=== PATIENT | female | born 1945 | race Caucasian/White ===

== ENCOUNTER 2018-09-28 23:15 | Inpatient (IN) ==
[2018-09-28] MEDS ORDERED: Aspirin 81 MG TAB.CHEW ONE (23:22)
[2018-09-28] MEDS ORDERED: *HR* Heparin 5,000 UNIT/ML VIAL ONE (23:22)
[2018-09-28] MEDS ORDERED: 0.9 % Sodium Chloride 1,000 ML ONE ×2 (23:22→23:49)
[2018-09-28] MEDS ORDERED: *HR* Ticagrelor 90 MG TABLET ONE (23:22)
[2018-09-28] MEDS ORDERED: *HR* Ticagrelor 90 MG TABLET PO ONE (23:31)
[2018-09-28] MEDS ORDERED: *HR* Heparin 5,000 UNIT/ML VIAL IVP ONE (23:32)
--- NOTE | 2018-09-28 23:34 | Emergency Department Note ---
Disposition Clinical Impression: STEMI (ST elevation myocardial infarction) Qualifiers: Involved coronary artery: unspecified coronary artery Qualified Code(s): I21.3 - ST elevation (STEMI) myocardial infarction of unspecified site Disposition: Admitted As Inpatient Condition: Fair Time of Disposition: 23:41 General Adult HPI - General Stated complaint: STEMI Time Seen by Provider: 09/28/18 23:20 Nursing Notes Reviewed: Yes Vital Signs Reviewed: Yes - History of Present Illness HPI Narrative: 73-year-old female with a history of hypertension, hyperlipidemia, CABG 2 who presents the emergency department with complaints of chest pain. In route patient's EKG was reviewed and shows concern for ST elevation RI. Upon arrival the patient states she has had chest pain for 20 minutes at home, approximately one hour prior to arrival. This pain persists. She was given 2 nitroglycerin as well as 3 aspirin in route. She states her pain is slightly improving but persistent in the center of her chest and into her neck. This feels similar to previous episodes of RI. She has had CABG in 1997, three-vessel and in 2008 with 4 vessel. She has previously had normal ejection fraction. She otherwise denies significant shortness of breath, back pain, nausea, vomiting, dizziness. - Related Data Allergies Allergy/AdvReac Type Severity Reaction Status Date / Time codeine Allergy Confusion Verified 09/28/18 23:26 morphine Allergy Confusion Verified 09/28/18 23:26 Review of Systems: ROS per history of present illness, all other systems reviewed and negative or normal. All systems ED: reviewed and negative except as stated. Review of Systems: As Per HPI Past Medical History - Past Medical History Attestation: Yes The following information was validated with the patient. Source: patient Medical history: Reports: coronary artery disease, hyperlipidemia, hypertension, myocardial infarction Surgical history: Reports: coronary bypass (CABG) (x2), orthopedic, other (knee), other (pelvic sling) - Social History Smoking Status: Never smoker Physical Exam General: Conversant. No apparent distress. Follow commands. Appears stated age. Neck: No JVD. Trachea midline. Neck supple. Eyes: PERRL. No scleral icterus. HENT: Normocephalic and atraumatic. Moist mucus membranes. Cardiovascular: Regular rate and rhythm. Normal S1 and S2. No murmurs apprecia gilmer. Normal capillary refill. Extremities well perfused with 2+ distal pulses bilaterally. No edema. Pulmonary: Normal and equal breath sounds bilaterally, anteriorly and posteriorly. No wheezes, rales, or rhonchi. Not in respiratory distress. Speaks in full sentences. Abdomen: Soft, nondistended, and tontender. No bruits or masses. No guarding. Neuro: Alert and oriented x3. No slurred speech. No focal deficits noted. Skin: No rashes noted on visualized skin. Musculoskeletal: No bony abnormalities visualized. Moves all extremities. Psych: Normal mood. Pleasant. Makes appropriate eye contact. Course - Reevaluation(s) Reevaluation #1: EKG en route shows ST elevations in II, III, aVF, V1-V3 with inversions in I, aVL. Time: 23:07 Reevaluation #2: Repeat EKG shows ST elevations in III, AVF, V1-V3 with inversions in I, AVL. STEMI alert called. Time: 23:23 - Consultations Consultation #1: Spoke with Dr. Kevin. Requested further information on past medical history and medications. He was placed on hold to ask further risk factors. Confirmed the patient has had 2 CABGs, back in 1997 and 2008. She has a history of hypertension, hyperlipidemia. She takes aspirin, metoprolol, and a statin. She has a history of normal EF and was seen by industrial truck driver in April of this year and cleared for knee surgery. Never had a history of valve replacements or in- graft stenting. Patient lives in [place] and is here visiting family. She continues to have chest pain, though improved following Nitro and aspirin. Dr. Kevin states he will be in to see the patient. Time: 23:30 Consultation #2: Dr. Kevin in to evaluate the patient. Will take to animal laboratory helper. Time: 23:45 Vital Signs Temperature 97.7 F 09/28/18 23:23 Pulse Rate 76 09/28/18 23:23 Respiratory Rate 15 09/28/18 23:23 Blood Pressure 183/83 09/28/18 23:23 O2 Sat by Pulse Oximetry 100 09/28/18 23:23 Temperature 97.7 F 09/28/18 23:23 Pulse Rate 76 09/28/18 23:23 Respiratory Rate 15 09/28/18 23:23 Blood Pressure 183/83 09/28/18 23:23 O2 Sat by Pulse Oximetry 100 09/28/18 23:23 Oxygen Delivery Oxygen Delivery Room Air Medical Decision Making - MDM Narrative Medical decision making narrative: 73-year-old female with significant cardiac history who presents emergency department with complaints of chest pain. In route the patient's EKG was evaluated and found to have ST elevations in contiguous leads with reciprocal ST depressions, concerning for inferior STEMI. On arrival the patient's blood pressure is elevated: Heart rate stable in the 70s. She is mentating appropriately. Continues to complain of pain. She has received 2 nitroglycerin in route. She also took 3 aspirin at home. Repeat EKG continues to show ST elevation with reciprocal changes therefore STEMI alert activated. Discussed c ase with on-call detonator assembler, Dr. Kevin who evaluated the patient here in the emergency department and deemed her candidate for acute intervention. Patient was started on Brillinta, heparin and 81 mg aspirin given to complete full 324 mg dose. The patient agrees with and understands the course of treatment plan including plan for admission and cardiac catheterization. All questions answered. - Medical Records Medical records reviewed: Yes I reviewed the patient's medical records. - Lab Data Lab results reviewed: Yes I reviewed the patient's lab results. Result diagrams: 09/28/18 23:20 09/28/18 23:20 Lab Results 09/28/18 09/28/18 09/28/18 Range/Units 23:20 23:20 23:20 WBC 9.8 (4.3-11.1) K/mcL RBC 4.28 (3.82-4.97) M/mcL Hgb 12.5 (11.5-15.4) g/dL Hct 37.6 (35.3-44.9) % MCV 87.9 (83.0-100.0) fL MCH 29.2 (28.0-33.3) pg MCHC 33.2 (31.6-35.5) g/dL RDW 13.5 (11.5-14.5) % Plt Count 247 (140-400) K/mcL MPV 10.5 (9.4-12.4) fL Immature Gran % 0.3 (0-4) % Seg Neutrophils % 58.5 % Lymphocytes % 27.7 % Monocytes % 10.2 % Eosinophils % 3.0 % Basophils % 0.3 % Neutrophils # 5.7 (1.6-8.9) K/mcL Lymphocytes # 2.7 (0.6-4.6) K/mcL Monocytes # 1.0 (0.0-1.3) K/mcL Eosinophils # 0.3 (0.0-0.6) K/mcL Basophils # 0.0 (0.0-0.2) K/mcL PT 10.3 (9.4-12.1) Seconds INR 0.9 APTT 25.5 L (26.0-36.0) Seconds Sodium 130 L (136-145) mEq/L Potassium 4.0 (3.5-5.1) mEq/L Chloride 98 (98-107) mEq/L Carbon Dioxide 24 (23-29) mEq/L BUN 35 H (8-23) mg/dL Creatinine 1.26 H (0.60-1.20) mg/dL Est GFR ( Amer) 50 L (> 60) Est GFR (Non-Af Amer) 42 L (> 60) BUN/Creatinine Ratio 28 H (6-26) Glucose 124 H (70-105) mg/dL Calculated Osmolality 279 L (280-300) Calcium 10.1 (8.6-10.3) mg/dL Magnesium 1.8 (1.6-2.6) mg/dL Troponin I 0.04 H* (< 0.04) ng/mL - Radiology Data Radiology results reviewed: Yes I reviewed the patient's radiology results.
[2018-09-28 23:35] LABS: Basophils % 0.3 %; Eosinophils # 0.3 K/mcL (0.0-0.6); Hematocrit 37.6 % (35.3-44.9); Hemoglobin 12.5 g/dL (11.5-15.4); Immature Granulocytes % 0.3 % (0-4); Lymphocytes # 2.7 K/mcL (0.6-4.6); Lymphocytes % 27.7 %; Mean Corpuscular HGB Conc 33.2 g/dL (31.6-35.5); Mean Corpuscular Hemoglobin 29.2 pg (28.0-33.3); Mean Corpuscular Volume 87.9 fL (83.0-100.0); Mean Platelet Volume 10.5 fL (9.4-12.4); Monocytes % 10.2 %; Neutrophils # 5.7 K/mcL (1.6-8.9); Platelet Count 247 K/mcL (140-400); Red Blood Count 4.28 M/mcL (3.82-4.97); Red Cell Distribution Width 13.5 % (11.5-14.5); Segmented Neutrophils % 58.5 %; White Blood Count 9.8 K/mcL (4.3-11.1)
--- NOTE | 2018-09-28 23:38 | Emergency Department Note ---
Disposition Clinical Impression: STEMI (ST elevation myocardial infarction) Qualifiers: Involved coronary artery: unspecified coronary artery Qualified Code(s): I21.3 - ST elevation (STEMI) myocardial infarction of unspecified site Disposition: Admitted As Inpatient Condition: Fair Time of Disposition: 23:38 General Adult HPI - General Chief complaint: ED Chest Pain Stated complaint: STEMI Time Seen by Provider: 09/28/18 23:20 Source: EMS - History of Present Illness Pain Scale: 0 - Related Data Allergies Allergy/AdvReac Type Severity Reaction Status Date / Time codeine Allergy Confusion Verified 09/28/18 23:26 morphine Allergy Confusion Verified 09/28/18 23:26 Past Medical History - Past Medical History Medical history: Reports: coronary artery disease, hyperlipidemia, hypertension, myocardial infarction - Social History Smoking Status: Never smoker Alcohol use: Reports: none Physical Exam - General General appearance: alert, in no apparent distress Course Vital Signs Temperature 97.7 F 09/28/18 23:23 Pulse Rate 76 09/28/18 23:23 Respiratory Rate 15 09/28/18 23:23 Blood Pressure 183/83 09/28/18 23:23 O2 Sat by Pulse Oximetry 100 09/28/18 23:23 Temperature 97.7 F 09/28/18 23:23 Pulse Rate 76 09/28/18 23:23 Respiratory Rate 15 09/28/18 23:23 Blood Pressure 183/83 09/28/18 23:23 O2 Sat by Pulse Oximetry 100 09/28/18 23:23 Oxygen Delivery Oxygen Delivery Room Air Attestation Statement - Attestation Attestation: I reviewed the residents documentation and agree with the residents assessment and plan of care. I have personally had face to face time with the patient. (Brief History, Brief Exam, and MDM) I personally supervised and was present for the kapadia/critical portions of the following procedures completed by the resident: EKG 73 year old female presents to the ED via EMS with chest pressure that radiates to her jaw and neck. Patient states that she had a CABG in 1997 and 2008 and no cardiac followup or testing since this time and it was done in [place]. She states that she is here visiting family and her daughter is coming in from [place]. Patinet state that she recieved 3 ASA an nitro en route and it has helped iwth the pain. upon inspection of the initial eMS EKG it is otherwie concernign for STEMI and on repest EKG in the depratment it confirms STEMI. WE have called STEMI alert and discussed case ith interbventional dry folder cloth Dr. adam who will evlaute and take to slabber.
[2018-09-28 23:45] LABS: INR 0.9; Prothrombin Time 10.3 Seconds (9.4-12.1)
[2018-09-28 23:48] LABS: Activated Partial Thrombo Time 25.5 Seconds (26.0-36.0)
[2018-09-28] MEDS ORDERED: *HR* FentaNYL (PF) 100 MCG/2 ML VIAL ONE (23:48)
[2018-09-28] MEDS ORDERED: *HR* Midazolam HCl 2 MG/2 ML VIAL ONE (23:48)
[2018-09-28] MEDS ORDERED: ISOVUE-370 200 ML INFUS..BTL ONE (23:49)
[2018-09-28] MEDS ORDERED: *HR* Heparin 10,000 UNIT/10 ML VIAL ONE (23:49)
[2018-09-28] MEDS ORDERED: Nitroglycerin 1,000 MCG/10 ML VIAL IV ONE (23:49)
[2018-09-28] MEDS ORDERED: Heparin 1,000 UNITS/500 mL 500 ML ONE (23:49)
[2018-09-28 23:50] LABS: Calcium 10.1 mg/dL (8.6-10.3); Magnesium 1.8 mg/dL (1.6-2.6)
[2018-09-28 23:53] LABS: Troponin I 0.04 ng/mL (< 0.04)
[2018-09-29] MEDS ORDERED: Nitroglycerin 0.4 MG TAB.SUBL SL ONE (00:02)
--- NOTE | 2018-09-29 00:10 | Cardiology History & Physical ---
Date of Encounter: 09/29/18 Time of Encounter: 00:07 Assessment and Plan (1) STEMI (ST elevation myocardial infarction) Current Visit: Yes Status: Acute The assessment and plan as outlined above was discussed with the patient and/or family members who expressed understanding and agreement. All questions were answered. ST elevations inferiorly with reciprocal changes in the high lateral leads. Risks benefits and alternatives of a LHC were discussed with the patient and her daughter and she agreed to proceed. Qualifiers: Involved coronary artery: right coronary artery Qualified Code(s): I21.11 - ST elevation (STEMI) myocardial infarction involving right coronary artery History of Present Illness Chief complaint: Chest Pain HPI: Ms. Joseph is a 73 year old female with history of hypertension, coronary artery disease status post CABG twice in 1997 and last in 2008. Patient experienced chest pain half an hour prior to presentation to the emergency department how to have inferior ST elevations. She describes chest pain as retrosternal burning radiating to her jaw currently relieved after sublingual nitroglycerin. Blood pressure remains to be elevated with a systolic blood pressure above 180. Risks benefits and alternatives were discussed with the patient regards to her LHC and she agrees to proceed Past Med Surg Social Fam HX - Past Medical History Medical history: coronary artery disease, hyperlipidemia, hypertension, myocardial infarction Additional medical history: bladder infection - Past Surgical History Surgical History: coronary bypass (CABG) (x2), orthopedic, other (knee), other (pelvic sling) Additional surgical history: right knee. CABG' and . Last cath - Social History Smoking Status: Never smoker Alcohol use: none Medications and Allergies Allergy/AdvReac Type Severity Reaction Status Date / Time codeine Allergy Confusion Verified 09/28/18 23:26 morphine Allergy Confusion Verified 09/28/18 23:26 All Systems Review: The remainder of the systems were reviewed and are negative Physical Examination Vital Signs, Last 4 Hours Temp Pulse Resp BP Pulse Ox 09/28/18 23:23 97.7 F 76 15 183/83 100 General: Conversant, No Apparent Distress HEENT: Atraumatic, Normocephaly, Mucus Membranes Moist Neck: No JVD, Normal carotid pulses Cardiac: Reg Rate and Rhythm, Normal S1 and S2, No Murmur Lungs: Normal Breath Sounds, No Wheeze, Rales, Rhonchi Neuro: Alert and responsive, No focal deficits noted Abdomen: Soft, Non-Tender Skin: No rashes noted on visualized skin Musculoskeletal: No Chest Wall Tenderness Extremities: No Clubbing, No Cyanosis, No Edema, Normal Pulses Results 09/28/18 23:20 09/28/18 23:20 Lab Results 09/28/18 09/28/18 09/28/18 23:20 23:20 23:20 WBC 9.8 Hgb 12.5 Hct 37.6 Plt Count 247 INR 0.9 APTT 25.5 L Sodium 130 L Potassium 4.0 Chloride 98 Carbon Dioxide 24 BUN 35 H Creatinine 1.26 H Glucose 124 H Calcium 10.1 Magnesium 1.8 Troponin I 0.04 H*
[2018-09-29] MEDS ORDERED: Tirofiban 12.5 MG/250ML 12.5 MG/250 ML BAG ONE (00:12)
[2018-09-29] MEDS ORDERED: Tirofiban 12.5 MG/250ML 12.5 MG/250 ML BAG IVC SCH (01:15)
--- NOTE | 2018-09-29 01:58 | Invasive Diagnostic Lab Proc ---
Name: Yanni Joseph Date of Study: 09/29/2018 Date: 1945 Ht: 63.0in Medical Record#: [id number] Age: 73 Wt: 156.53lb Gender: Female BSA: 1.74 Order #: [id number] BMI: 27.73 Physicians Procedure Physician: Donavon Kevin MD Referring MD: Referring MD: Staff Name Position Time In Alysa Vences RN Monitor 12:08 AM Lasha Dougherty RN Java Grails Developer 12:08 AM Deonna Mercado RT (R) Scrub 12:08 AM Indications Indication STEMI Procedures Performed Procedure L HRT ART/GRFT ANGIO Pre-Procedure Checklist Informed consent is complete signed and on chart. H&P is on chart. ID band is on and ID verified with patient. Patient NPO for procedure The procedure was described for the patient and questions were answered. Blood Pressure: 163/136 ECG is on chart. Rhythm: NSR Plan of Care Patient will tolerate the procedure without complications. Adequate level of comfort will be maintained. Hemodynamics will remain stable Patient will recover from procedure without complications. Respiratory function will be maintained. Cardiac rhythm will remain stable. Patient temperature will be maintained. Patient and/or family have verbalized understanding of the procedure. Patient Education Chief Complaint/Reason for Test: Cardiac Cath Developmental Category: Geriatric (65+ years) Developmentally Appropriate for Age: Yes Learning Barriers: None Education Needs: Procedure Education Method: Verbal Information Taught: Cardiac Cath Educational Evaluation: Able to repeat information Intravenous Access Time IV Size Location DC'd Fluid/Drip Rate Units RN 12:07 AM 20g 1 1/4" Patent On Arrival Rt Hand 12:07 AM 18g 1 1/4" Patent On Arrival Lt Antecubital 0.9NaCl 25 ml/hr Lasha Dougherty RN Allergies morphine codeine Vital Signs Time BP (mmHg) HR (bpm) O2 Sat. RR (bpm) LOC 12:29 AM / % 5 = Fully awake and oriented or at pre-proc level 12:30 AM / % 4 = Oriented but drowsy 12:45 AM / % 4 = Oriented but drowsy 12:19 AM 176 / 78 80 98 % 17 12:24 AM 173 / 80 82 98 % 14 12:29 AM 185 / 88 85 98 % 12 12:34 AM 186 / 90 81 100 % 14 12:39 AM 185 / 100 82 99 % 29 12:44 AM 167 / 88 78 96 % 8 12:49 AM 183 / 86 76 100 % 16 12:54 AM 170 / 84 78 100 % 9 12:59 AM 173 / 79 78 99 % 11 Procedural Medications Time Medication Dose Units Method Given By 12:30 AM Oxygen 2 L/min nasal cannula Lasha Dougherty RN 12:15 AM Versed 1 mg Intravenous Lasha Dougherty RN 12:15 AM Benadryl 25 mcg Intravenous Lasha Dougherty RN 12:21 AM Lidocaine 2% 20 ml Subcutaneous Donavon Kevin MD ASA Classification: CLASS II- Mild systemic disease (i.e. well-controlled diabetes, hypertension, asthma, cigarette smoking) David Score Preprocedure Postprocedure Activity 2- Moves 4 extremities sustained head lift Activity 2- Moves 4 extremities sustained head lift Circulation 2- SBP +/= 20 points of pre-anesthetic level Circulation 2- SBP +/= 20 points of pre-anesthetic level Consciousness 2- Awake and alert oriented x 3 Consciousness 2- Awake and alert oriented x 3 O2 Saturation 2- Able to maintain O2 satruation of 92% on room air O2 Saturation 2- Able to maintain O2 satruation of 92% on room air Respiratory 2- Able to deep breathe and cough well Respiratory 2- Able to deep breathe and cough well Total Score 10 Total Score 10 Contrast Agent: Isovue Diagnostic Contrast: 128 ml Total Contrast: 128 ml Fluoro Dose: 28 mGy Activated Clotting Time Time Seconds to Clot 12:43 AM 220 Procedure Log Time Note Enter By 12:07 AM Pt arrived to laboratory technician 2 at 00:07 scoates 12:08 AM Alysa Vences RN Position: Monitor Time in: 00:08 scoates 12:08 AM Lasha Dougherty RN Position: Java Grails Developer Time in: 00:08 scoates 12:08 AM Deonna Mercado (R) Position: Scrub Time in: 00:08 scoates 12:09 AM Patient charges- Angio tray pack, Navilyst 3mm J, Pulse Oximetry and ACIST tubing and transducer scoates 12:09 AM Case Delayed no scoates 12:11 AM Physician arrived 00:11 scoates 12:11 AM ASA Class CLASS II- Mild systemic disease (i.e. well-controlled diabetes, hypertension, asthma, cigarette smoking) scoates 12:11 AM Meet and greet completed scoates 12:11 AM Sign in performed according to hospital policy. Informed consent was obtained. scoates 12:11 AM Procedure start 00:11 scoates 12:11 AM CathStat 12:12 AM Hair removed from procedure site in procedure lab using clippers. Bilateral groin prepped with Chloraprep by Alysa Vences RN, then patient was draped. Skin intact. scoates 12:13 AM Time: 00:13LOC: 5 = Fully awake and oriented or at pre-proc level scoates 12:13 AM Time out was performed according to hospital policy. Conscious sedation and anesthesia was achieved (see medication log with in this report above) scoates 12:13 AM Time: 00:13 Patient comfortable and pain free: Yes scoates 12:14 AM Time: 00:14 Oxygen on at 2 L/min per nasal cannula by Lasha Dougherty RN scoates 12:15 AM Time: 00:15 benadryll 25 mcg Intravenous Given by Lasha Dougherty RN scoates 12:15 AM Time: 00:15 Versed 1 mg Intravenous Given by Lasha Dougherty RN scoates 12:15 AM Pressure channel 1 zero failed. 12:15 AM Critical cardiac patient with acute MA was brought emergently to the cardiac phlebotomist medical lab assistant for immediate coronary angiography and intervention if clinically indicated. scoates 12:17 AM Pressure channel 1 zeroed. 12:18 AM Vitals capture started with the following parameters, Patient=Adult, Interval=5 min, Initial Jplscmvf=824 mmHg, Deflation Rate=3 mmHg, Cuff placed on Right Arm 12:19 AM HR=80 bpm, NRZT=939/78 mmhg, SpO2=98.0 %, Resp=17 B/min, Comment=nsr 12:19 AM Time: 00:21 20 ml Lidocaine 2% to right groin Subcutaneous Given by Donavon Kevin MD scoates 12:20 AM Micro-Introducer Kit utilized for sheath placement scoates 12:21 AM Access obtained by percutaneous puncture. 6Fr 10cm Terumo [place] sheath placed in right Femoral artery. [id number] scoates 12:21 AM 5Fr FR 4 catheter inserted over the wire [facility] scoates 12:22 AM RCA angiography performed in multiple views. scoates 12:22 AM Recorded Pressure: Ao, HR=73, Condition=Condition 1 (Aorta) Ao 121/45/78 12:23 AM Left DAVID to the 1st OM angio performed in multiple views. scoates 12:23 AM Left DAVID to the 1st Diagonal angio performed in multiple views. scoates 12:24 AM Left DAVID to the RPDA angio performed in multiple views. scoates 12:24 AM HR=82 bpm, OVQU=151/80 mmhg, SpO2=98 %, Resp=14 B/min 12:25 AM Recorded Pressure: Ao, HR=82, Condition=Condition 1 (Aorta) Ao 142/88/115 12:26 AM Catheter removed scoates 12:27 AM 5Fr FL 4 catheter inserted over the wire [facility] scoates 12:27 AM LCA angiography performed in multiple views. scoates 12:28 AM Catheter removed scoates 12:29 AM 5Fr IM catheter inserted over the wire [id number] scoates 12:29 AM HR=85 bpm, SCHZ=083/88 mmhg, SpO2=98.0 %, Resp=12 B/min, Comment=nsr 12:33 AM Left DAVID to the LAD angio performed in multiple views. scoates 12:33 AM Catheter removed scoates 12:33 AM 5Fr Pigtail catheter inserted over the wire DN scoates 12:34 AM HR=81 bpm, KLDZ=276/90 mmhg, OnS2=350.0 %, Resp=14 B/min, Comment=nsr 12:35 AM Recorded Pressure: LV, HR=83, Condition=Condition 1 (Left Ventricle) LV 171/1/11 12:35 AM Catheter crossed the aortic valve and was selectively placed in the left ventricle. Pressures recorded on pullback for left heart catheterization. scoates 12:36 AM Bolus angiogram of left Ventricle complete: 10 ml/sec for a total of 20 mls scoates 12:36 AM Recorded Pressure: LV, Ao, HR=81, Condition=Condition 1 (Left Ventricle) LV 137/27/34, (Aorta) Ao 141/67/106 12:37 AM Bolus angiogram of right Femoral complete: hand injected ml/sec for a total of 5 mls scoates 12:38 AM Catheter removed scoates 12:39 AM HR=82 bpm, XKAN=936/100 mmhg, SpO2=99.0 %, Resp=29 B/min 12:42 AM Coronary Dominance: right scoates 12:42 AM Procedure completed at 00:42 09/29/2018 scoates 12:42 AM Did you address JOSEPH flow and Dominance? YesCoronary Dominance: right scoates 12:43 AM ACT 220 scoates 12:43 AM Sign out completed: Radiation Dose 205 mGy, 28.5 Gy/cm2 Fluoro Time: 8.7 Isovue 370 - 200ml contrast 128 ml given by Donavon Kevin MD. Complications: None. The patient was discharged out of the phlebotomist medical lab assistant in stable condition. Sedation minutes 28. Cardiac Rehab Consult needed: Yes. Confirmed administered medications: Yes scoates 12:43 AM Isovue 370 - 200ml,1 Bottle(s) used. scoates 12:44 AM Arterial sheath pulled, Perclose closure device used and was Successful [id number] S/N. scoates 12:44 AM HR=78 bpm, CKPU=574/88 mmhg, SpO2=96 %, Resp=8 B/min 12:45 AM Time: 00:30LOC: 4 = Oriented but drowsy scoates 12:45 AM Time: 00:29 Patient comfortable and pain free: Yes scoates 12:49 AM HR=76 bpm, ZGYB=273/86 mmhg, FpD0=053 %, Resp=16 B/min 12:54 AM HR=78 bpm, YFBF=312/84 mmhg, UgJ2=937 %, Resp=9 B/min 12:54 AM Estimated Blood Loss: minimal scoates 12:54 AM Post ECG NSR scoates 12:54 AM Post Blood Pressure 170/84 scoates 12:54 AM 00:54 Post Pulses Bilateral DP & PT 1+ scoates 12:55 AM Information taught Cardiac Cath and Perclose scoates 12:55 AM Education needs Procedure, Plan of Care, and Responsibilities of Patient in Care scoates 12:55 AM Learning barriers :None scoates 12:55 AM Education Methods Verbal scoates 12:55 AM Education evaluation Able to repeat information scoates 12:58 AM Site status No bleeding/ No Hematoma - Rt Groin as reported by Deonna Mercado RT (R) at 00:55 scoates 12:59 AM Report given to Yael LE Pt taken to ICU Room #2. 00:58 scoates 12:59 AM HR=78 bpm, ETNF=404/79 mmhg, SpO2=99 %, Resp=11 B/min 12:59 AM Family placed in consult room. scoates 01:01 AM Time: 00:45LOC: 4 = Oriented but drowsy scoates 01:01 AM Time: 00:45 Patient comfortable and pain free: Yes scoates 01:11 AM Lesion found in Distal LMCA. Pre Stenosis: 100 Pre JOSEPH Flow: scoates 01:13 AM Lesion found in Proximal RCA. Pre Stenosis: 100 Pre JOSEPH Flow: scoates 01:13 AM Lesion found in 2nd Marginal. Pre Stenosis: 80 Pre JOSEPH Flow: scoates 01:17 AM Patient out of room: 01:17 scoates 01:17 AM Left Main Coronary Artery with 100% stenosis scoates 01:18 AM Right Coronary, Right Posterior Descending Arteries with Right Posterolateral and Acute Marginal branches with 100 % stenosis. If graft is supplying this area, 100 % stenosis scoates Complications Complication None None Hemodynamics Pressures Site Systolic/A Wave Diastolic/V Wave Mean AO 121 45 78 AO 142 88 115 LV 171 1 11 LV 137 27 34 AO 141 67 106 Post Procedure Information Blood Pressure: 170/84 mmHg Rhythm: NSR Post procedural instructions were given Closure Device Time Device Success/Fail 09/29/2018 1:00:00 AM Perclose ProGlide Successful Site Checks Time Location Status Staff Sheath In? Note 12:55 AM Rt Groin No bleeding/ No Hematoma Deonna Mercado RT (R) Pulses Time Site Pre-Procedure Post-Procedure Note 12:54:00 AM 12:54:00 AM Bilateral DP & PT 1+ Updated by Alysa Yeboah RN on 09/29/2018 1:36:00 AM electronically signed on 09/29/2018 1:36:57 AM with status of Final
[2018-09-29 05:44] LABS: Basophils % 0.2 %; Eosinophils # 0.2 K/mcL (0.0-0.6); Eosinophils % 1.7 %; Hematocrit 33.3 % (35.3-44.9); Hemoglobin 11.2 g/dL (11.5-15.4); Immature Granulocytes % 0.3 % (0-4); Lymphocytes # 1.7 K/mcL (0.6-4.6); Lymphocytes % 19.4 %; Mean Corpuscular HGB Conc 33.6 g/dL (31.6-35.5); Mean Corpuscular Hemoglobin 29.7 pg (28.0-33.3); Mean Corpuscular Volume 88.3 fL (83.0-100.0); Mean Platelet Volume 10.5 fL (9.4-12.4); Monocytes # 0.8 K/mcL (0.0-1.3); Monocytes % 9.8 %; Neutrophils # 5.9 K/mcL (1.6-8.9); Platelet Count 235 K/mcL (140-400); Red Blood Count 3.77 M/mcL (3.82-4.97); Red Cell Distribution Width 13.4 % (11.5-14.5); Segmented Neutrophils % 68.6 %; White Blood Count 8.6 K/mcL (4.3-11.1)
[2018-09-29 06:04] LABS: BUN/Creatinine Ratio 32 (6-26); Blood Urea Nitrogen 31 mg/dL (8-23); Calcium 9.7 mg/dL (8.6-10.3); Carbon Dioxide 23 mEq/L (23-29); Chloride 100 mEq/L (98-107); Glucose 124 mg/dL (70-105); Osmolality,Calculated 282 (280-300); Potassium 3.6 mEq/L (3.5-5.1); Sodium 132 mEq/L (136-145); eGFR For African Americans > 60 (> 60); eGFR For Non-African Americans 57 (> 60)
[2018-09-29] MEDS ORDERED: Nitroglycerin 0.4 MG PATCH.TD24 TD SCH (07:30)
[2018-09-29] MEDS ORDERED: Aspirin 81 MG TAB.CHEW PO SCH (09:00)
[2018-09-29] MEDS: Nitroglycerin 0.4 MG TAB.SUBL SL PRN ×2 (09:09→09:22)
--- NOTE | 2018-09-29 12:26 | Cardiology Progress Note ---
Date of Encounter: 09/29/18 Time of Encounter: 08:00 Assessment and Plan (1) STEMI (ST elevation myocardial infarction) Current Visit: Yes Status: Acute Patient presented as acute inferior STEMI; emergently taken to the production laborer. Reviewed [facility] with Dr. Kevin; culprit of STEMI likely occluded SVG-R PDA. LVEF 60%. TTE shows preserved LVEF. Medical therapy recommended. Resume home BB, statin. Will add plavix (STEMI) and nitrates. Episode of chest burning this AM, resolved after 2 NTG tabs. Labs, vitals stable. No ectopy noted. Cardiac rehab. Plan to step down out ICU in AM if stable. Qualifiers: Involved coronary artery: right coronary artery Qualified Code(s): I21.11 - ST elevation (STEMI) myocardial infarction involving right coronary artery (2) HTN (hypertension) Current Visit: Yes Status: Chronic Qualifiers: Hypertension type: essential hypertension Qualified Code(s): I10 - Essential (primary) hypertension (3) Hx of CABG Current Visit: Yes Status: Chronic Hx of CABG in 1997, 2008. Plan as above. Discussion w patient/family: The assessment and plan as outlined above was discussed with the patient and/or family members who expressed understanding and agreement. All questions were answered. Thank you for involving us in the care of your patient. Please call with any questions. The patient will be discussed and reviewed with Dr. Garcia; changes to be made accordingly. Subjective Principal diagnosis: STEMI Interval history: Seen and examined. Reports intermittent episodes of chest burning; had 2 SL NTG tabs which resolved pain. No issues with right groin cath site. Objective Vital Signs, Last 4 Hours Temp Pulse Resp BP Pulse Ox 09/29/18 12:00 97.6 F 09/29/18 11:00 78 14 151/82 99 09/29/18 10:00 71 14 141/65 99 09/29/18 09:00 75 14 148/65 98 General: Conversant, No Apparent Distress HEENT: Atraumatic, Normocephaly Cardiac: Reg Rate and Rhythm, Normal S1 and S2 Lungs: Normal Breath Sounds Neuro: Alert and responsive Abdomen: Soft Skin: No rashes noted on visualized skin Musculoskeletal: No Chest Wall Tenderness Extremities: No Edema, Normal Pulses Results 09/29/18 04:50 09/29/18 04:50 Lab Results 09/28/18 09/28/18 09/28/18 23:20 23:20 23:20 WBC 9.8 Hgb 12.5 Hct 37.6 Plt Count 247 INR 0.9 APTT 25.5 L Sodium 130 L Potassium 4.0 Chloride 98 Carbon Dioxide 24 BUN 35 H Creatinine 1.26 H Glucose 124 H Calcium 10.1 Magnesium 1.8 Troponin I 0.04 H* 09/29/18 09/29/18 04:50 04:50 WBC 8.6 Hgb 11.2 L Hct 33.3 L Plt Count 235 INR APTT Sodium 132 L Potassium 3.6 Chloride 100 Carbon Dioxide 23 BUN 31 H Creatinine 0.96 Glucose 124 H Calcium 9.7 Magnesium Troponin I Active Medications Aspirin (Aspirin) 81 mg PO DAILY [facility] Stop: 03/31/19 09:01 Last Admin: 09/29/18 10:21 Dose: 81 mg Documented by: Clopidogrel Bisulfate (Plavix) 75 mg PO DAILY [facility] Stop: 03/31/19 12:01 Last Admin: 09/29/18 11:45 Dose: 75 mg Documented by: Isosorbide Mononitrate (Imdur) 30 mg PO DAILY [facility] Stop: 04/01/19 11:31 Metoprolol Tartrate (Lopressor) 25 mg PO BID [facility] Stop: 03/31/19 11:31 Last Admin: 09/29/18 11:45 Dose: 25 mg Documented by: Nitroglycerin (Nitroglycerin) 0.4 mg SL Q5M PRN PRN Reason: CHEST PAIN Stop: 03/31/19 00:05 Last Admin: 09/29/18 09:22 Dose: 0.4 mg Documented by: Nitroglycerin (Nitroglycerin) 0.4 mg TD 0730 [facility] Stop: 09/30/18 07:31 Last Admin: 09/29/18 02:08 Dose: 0.4 mg Documented by: - Imaging and Cardiology Echo: report reviewed Cardiac cath: report reviewed - EKG Interpretation EKG results cardiology: personally reviewed Consult Discharge Plan - Plan Referrals: NONE,PCP [Primary Care Provider] -
--- NOTE | 2018-09-29 14:27 | Electrocardiograph Report ---
[address] [place] [address] Test Date: 2018-09-29 Pat Name: Yanni Joseph Department: 109 Room: 02 Gender: F Facility Maintenance Supervisor: ANNY : 1945 Requested By: Donavon Kevin Order Number: [id number] Reading MD: Jonathan Garcia Measurements Intervals [address] Rate: 66 P: 25 NC: 221 QRS: -1 QRSD: 97 T: 17 QT: 416 QTc: 429 Interpretive Statements SINUS RHYTHM WITH FIRST DEGREE AV BLOCK LOW QRS VOLTAGE IN PRECORDIAL LEADS POSSIBLE RIGHT VENTRICULAR CONDUCTION DELAY SEPTAL MYOCARDIAL INFARCTION, OF INDETERMINATE AGE INFERIOR MYOCARDIAL INFARCTION, OF INDETERMINATE AGE MARKED ST ELEVATION, CONSIDER ANTERIOR INJURY ACUTE VT Electronically Signed On 09-29-2018 14:25:52 EDT by Jonathan Garcia
[2018-09-29] MEDS ORDERED: Ondansetron 4 MG/2 ML VIAL IVP PRN ×2 (14:28→17:42)
--- NOTE | 2018-09-29 14:28 | Electrocardiograph Report ---
[place] [address] Test Date: 2018-09-29 Pat Name: Yanni Joseph Department: 109 Room: [facility] Gender: F Recycling Coordinator: ANNY : 1945 Requested By: Donavon Kevin Order Number: [id number] Reading MD: Jonathan Garcia Measurements Intervals [place] Rate: 71 P: 47 ID: [id number] QRS: 8 QRSD: 102 T: 32 QT: 402 QTc: 424 Interpretive Statements SINUS RHYTHM WITH FIRST DEGREE AV BLOCK LOW QRS VOLTAGE IN PRECORDIAL LEADS INCOMPLETE RIGHT BUNDLE BRANCH BLOCK INFERIOR MYOCARDIAL INFARCTION, possibly acute Electronically Signed On 09-29-2018 14:26:29 EDT by Jonathan Garcia
[2018-09-29] MEDS ORDERED: Isosorbide MONOnitrate (24 HR) 30 MG TAB.ER.24H PO SCH (14:30)
[2018-09-29] MEDS ORDERED: ALPRAZolam 0.25 MG TABLET PO PRN ×2 (14:42→17:42)
[2018-09-29] MEDS ORDERED: Nitroglycerin 0.4 MG TAB.SUBL SL PRN (17:42)
[2018-09-29] MEDS: *HR* Heparin 5,000 UNIT/ML VIAL SQ SCH (18:40)
[2018-09-29] MEDS: Acetaminophen 325 MG TABLET PO PRN (21:50)
[2018-09-30 01:18] LABS: Basophils % 0.3 %; Eosinophils # 0.2 K/mcL (0.0-0.6); Eosinophils % 2.5 %; Hematocrit 30.8 % (35.3-44.9); Hemoglobin 10.4 g/dL (11.5-15.4); Immature Granulocytes % 0.3 % (0-4); Lymphocytes # 1.8 K/mcL (0.6-4.6); Lymphocytes % 23.6 %; Mean Corpuscular HGB Conc 33.8 g/dL (31.6-35.5); Mean Corpuscular Hemoglobin 29.6 pg (28.0-33.3); Mean Corpuscular Volume 87.7 fL (83.0-100.0); Mean Platelet Volume 10.5 fL (9.4-12.4); Monocytes # 0.9 K/mcL (0.0-1.3); Monocytes % 11.5 %; Neutrophils # 4.8 K/mcL (1.6-8.9); Platelet Count 205 K/mcL (140-400); Red Blood Count 3.51 M/mcL (3.82-4.97); Red Cell Distribution Width 13.5 % (11.5-14.5); Segmented Neutrophils % 61.8 %; White Blood Count 7.7 K/mcL (4.3-11.1)
[2018-09-30 01:41] LABS: BUN/Creatinine Ratio 29 (6-26); Blood Urea Nitrogen 24 mg/dL (8-23); Calcium 9.9 mg/dL (8.6-10.3); Carbon Dioxide 26 mEq/L (23-29); Chloride 98 mEq/L (98-107); Glucose 106 mg/dL (70-105); Osmolality,Calculated 276 (280-300); Potassium 3.9 mEq/L (3.5-5.1); Sodium 131 mEq/L (136-145); eGFR For African Americans > 60 (> 60); eGFR For Non-African Americans > 60 (> 60)
[2018-09-30] MEDS: *HR* Heparin 5,000 UNIT/ML VIAL SQ SCH ×2 (04:05→18:30)
[2018-09-30] MEDS: Aspirin 81 MG TAB.CHEW PO SCH (08:46)
[2018-09-30] MEDS: Isosorbide MONOnitrate (24 HR) 30 MG TAB.ER.24H PO SCH (08:47)
[2018-09-30] MEDS: Nitroglycerin 0.4 MG PATCH.TD24 TD SCH ×2 (08:47→09:16)
--- NOTE | 2018-09-30 09:37 | Cardiology Progress Note ---
Date of Encounter: 09/30/18 Time of Encounter: 07:30 Assessment and Plan (1) STEMI (ST elevation myocardial infarction) Current Visit: Yes Status: Acute Patient presented as acute inferior STEMI; emergently taken to the bundle tier and labeler. Reviewed [facility] with Dr. Kevin; culprit of STEMI likely occluded SVG-R PDA. LVEF 60%. TTE shows preserved LVEF. Medical therapy recommended. Resume home BB, statin, Continue plavix (STEMI) and nitrates. No chest pain/discomfort overnight. Labs, vitals stable. No ectopy noted. Ambulate. Plan to d/c home in AM if stable. VTE: heparin SC Qualifiers: Involved coronary artery: right coronary artery Qualified Code(s): I21.11 - ST elevation (STEMI) myocardial infarction involving right coronary artery (2) HTN (hypertension) Current Visit: Yes Status: Chronic Qualifiers: Hypertension type: essential hypertension Qualified Code(s): I10 - Essential (primary) hypertension (3) Hx of CABG Current Visit: Yes Status: Chronic Hx of CABG in 1997, 2008. Plan as above. Discussion w patient/family: The assessment and plan as outlined above was discussed with the patient and/or family members who expressed understanding and agreement. All questions were answered. Thank you for involving us in the care of your patient. Please call with any questions. The patient will be discussed and reviewed with Dr. Skinner; changes to be made accordingly. Subjective Principal diagnosis: STEMI Interval history: Seen and examined. No events overnight. No chest pain reported. Now on 2N--has been up walking around without symptoms. Objective Vital Signs, Last 4 Hours Temp Pulse Resp BP Pulse Ox 09/30/18 07:20 97.9 F 72 16 140/71 96 General: Conversant, No Apparent Distress HEENT: Atraumatic, Normocephaly, Mucus Membranes Moist Cardiac: Reg Rate and Rhythm, Normal S1 and S2 Lungs: Normal Breath Sounds Neuro: Alert and responsive Abdomen: Soft Skin: No rashes noted on visualized skin Musculoskeletal: No Chest Wall Tenderness Extremities: No Edema, Normal Pulses Results 09/30/18 00:49 09/30/18 00:49 Lab Results 09/30/18 09/30/18 00:49 00:49 WBC 7.7 Hgb 10.4 L Hct 30.8 L Plt Count 205 Sodium 131 L Potassium 3.9 Chloride 98 Carbon Dioxide 26 BUN 24 H Creatinine 0.83 Glucose 106 H Calcium 9.9 Active Medications Acetaminophen (Tylenol) 650 mg PO Q6H PRN PRN Reason: Pain Stop: 03/31/19 21:21 Last Admin: 09/29/18 21:50 Dose: 650 mg Documented by: Alprazolam (Xanax) 0.25 mg PO BID PRN; Protocol PRN Reason: Anxiety Stop: 03/31/19 14:43 Aspirin (Aspirin) 81 mg PO DAILY [facility] Stop: 03/31/19 09:01 Last Admin: 09/30/18 08:46 Dose: 81 mg Documented by: Atorvastatin Calcium (Lipitor) 40 mg PO HS [facility] Stop: 03/31/19 21:01 Last Admin: 09/29/18 21:46 Dose: Not Given Documented by: Clopidogrel Bisulfate (Plavix) 75 mg PO DAILY [facility] Stop: 03/31/19 12:01 Last Admin: 09/30/18 08:46 Dose: 75 mg Documented by: Heparin Sodium (Porcine) (Heparin) 5,000 unit SQ Q12HCO [facility]; Protocol Stop: 03/31/19 18:01 Last Admin: 09/30/18 04:05 Dose: 5,000 unit Documented by: Isosorbide Mononitrate (Imdur) 30 mg PO DAILY [facility] Stop: 03/31/19 14:31 Last Admin: 09/30/18 08:47 Dose: 30 mg Documented by: Metoprolol Tartrate (Lopressor) 25 mg PO BID [facility] Stop: 03/31/19 11:31 Last Admin: 09/30/18 08:46 Dose: 25 mg Documented by: Nitroglycerin (Nitroglycerin) 0.4 mg SL Q5M PRN PRN Reason: CHEST PAIN Stop: 03/31/19 00:05 Ondansetron HCl (Zofran) 4 mg IVP Q6HR PRN; Protocol PRN Reason: Nausea Stop: 03/31/19 14:29 - Imaging and Cardiology Echo: report reviewed Other Results: 12 hour tele: avg HR=66 SR - EKG Interpretation EKG results cardiology: personally reviewed Consult Discharge Plan - Plan Referrals: NONE,PCP [Primary Care Provider] -
[2018-09-30] MEDS: Acetaminophen 325 MG TABLET PO PRN ×3 (10:40→23:33)
[2018-09-30 12:03] LABS: Bilirubin,Urine Negative (Negative); Blood,Urine Negative (Negative); Clarity,Urine Clear (Clear); Color,Urine Yellow (Yellow); Glucose,Urine (UA) Normal (Normal); Ketones,Urine Negative (Negative); Leukocyte Esterase,Urine Negative (Negative); Nitrite,Urine Negative (Negative); PH,Urine 6.5 pH Units (5.0-8.0); Protein,Urine Negative (Neg-Trace); Specific Gravity,Urine 1.019 (1.010-1.025); Urobilinogen,Urine Normal (Normal)
[2018-09-30] MEDS ORDERED: Latanoprost 2.5 ML BOTTLE BOTH EYES SCH (21:00)
[2018-10-01] MEDS: *HR* Heparin 5,000 UNIT/ML VIAL SQ SCH (04:41)
[2018-10-01] MEDS: Aspirin 81 MG TAB.CHEW PO SCH (08:10)
[2018-10-01] MEDS: Isosorbide MONOnitrate (24 HR) 30 MG TAB.ER.24H PO SCH (08:10)
--- NOTE | 2018-10-01 10:02 | Discharge Summary ---
Date of Encounter: 10/01/18 Time of Encounter: 10:00 - Discharge Diagnosis (1) STEMI (ST elevation myocardial infarction) Priority: Primary Status: Acute Qualifiers: Involved coronary artery: right coronary artery Qualified Code(s): I21.11 - ST elevation (STEMI) myocardial infarction involving right coronary artery (2) HTN (hypertension) Priority: Secondary Status: Chronic Qualifiers: Hypertension type: essential hypertension Qualified Code(s): I10 - Essential (primary) hypertension (3) Hx of CABG Priority: Secondary Status: Chronic - Hospital Course Hospital course: Ms. Joseph is a 73 year old female with presented as acute inferior STEMI; she was emergently taken to the laboratory helper which demonstrated s/p 3/5 patent bypass grafts with preserved LVEF. Culprit of STEMI felt to be secondar to occluded SVG-R PDA; medical therapy recommended. She was kept in ICU for 24 hours; she was stepped down out of ICU and has been doing well. Labs, vitals, and telemetry stable. No recurrent chest pain described. No issues with right groin access site. Ms. Joseph verbalized understanding of all information provided and agrees with plan. She is being prepped for discharge to home in stable condition. She will follow-up with primary desk manager in [place] in 1-2 weeks. - Time Spent with Patient Total time spent providing and/or coordinating discharge services: 45 minutes Greater than 30 minutes Specific discharge activities: per post PCI discharge instructions. No heavy lifiting >5 pounds x1 week. Follow-up with Primary Heavy Duty Mechanic in 1-2 weeks - Discharge Medications Prescriptions: New Isosorbide MONOnitrate (24 HR) [Imdur] 30 mg PO DAILY #30 tab.er.24h Atorvastatin [Lipitor] 40 mg PO HS #30 tablet Nitroglycerin 0.4 mg SL Q5M PRN #30 tab.subl PRN Reason: CHEST PAIN Clopidogrel [Plavix] 75 mg PO DAILY #30 tablet Continued Aspirin [Lo-Dose Aspirin EC] 81 mg PO DAILY Bimatoprost [Lumigan] 1 drop BOTH EYES DAILY Methenamine Hippurate 1 gm PO DAILY Metoprolol Succinate [Toprol Xl] 100 mg PO DAILY Olmesartan Medoxomil 40 mg PO DAILY Triamterene/HCTZ 37.5/25mg [Dyazide] 1 each PO DAILY Discontinued Amlodipine Besylate 5 mg PO DAILY Atorvastatin Calcium [Lipitor] 20 mg PO DAILY Ciprofloxacin HCl [Cipro] 250 mg PO BID Home Medications: Aspirin [Lo-Dose Aspirin EC] 81 mg PO DAILY 09/29/18 [History] Bimatoprost [Lumigan] 1 drop BOTH EYES DAILY 09/29/18 [History] Methenamine Hippurate 1 gm PO DAILY 09/29/18 [History] Metoprolol Succinate [Toprol Xl] 100 mg PO DAILY 09/29/18 [History] Olmesartan Medoxomil 40 mg PO DAILY 09/29/18 [History] Triamterene/HCTZ 37.5/25mg [Dyazide] 1 each PO DAILY 09/29/18 [History] Atorvastatin [Lipitor] 40 mg PO HS #30 tablet 10/01/18 [Rx] Clopidogrel [Plavix] 75 mg PO DAILY #30 tablet 10/01/18 [Rx] Isosorbide MONOnitrate (24 HR) [Imdur] 30 mg PO DAILY #30 tab.er.24h 10/01/18 [Rx] Nitroglycerin 0.4 mg SL Q5M PRN #30 tab.subl 10/01/18 [Rx] Allergies/Adverse Reactions: Allergy/AdvReac Type Severity Reaction Status Date / Time codeine Allergy Difficulty Verified 09/29/18 15:27 Breathing fentanyl AdvReac Confusion Verified 09/29/18 15:27 morphine AdvReac Confusion Verified 09/29/18 15:27 Date of admission: 09/28/18 23:45 Primary care physician: PCP NONE Consults: 09/29/18 01:04 Consult to Cardiac Rehabilitation-Phase1 [CONS] Routine Comment: Reason for Consult: AMI Call Completed: Yes Consult to Nurse Navigator [CONS] Routine Comment: Discharging clinician: Ness Sarkar Anticipated date of discharge: 10/01/18 Physical Examination Vital Signs, Last 4 Hours Temp Pulse Resp BP Pulse Ox 10/01/18 08:15 68 10/01/18 07:36 98.2 F 66 16 139/63 97 General: Conversant, No Apparent Distress HEENT: Atraumatic, Normocephaly, Mucus Membranes Moist Neck: No JVD, Normal carotid pulses Cardiac: Reg Rate and Rhythm, Normal S1 and S2, No Murmur Lungs: Normal Breath Sounds, No Wheeze, Rales, Rhonchi Neuro: Alert and responsive, No focal deficits noted Abdomen: Soft, Non-Tender Skin: No rashes noted on visualized skin Musculoskeletal: No Chest Wall Tenderness Extremities: No Clubbing, No Cyanosis, No Edema, Normal Pulses - Patient Status Disposition: Home, Self-Care Condition: Good Functional capacity at discharge: independent ambulation Overall status at discharge: patient is progressing back to baseline - Discharge Instructions Follow Up With: NONE,PCP [Primary Care Provider] - Additional Instructions: RISK FACTORS: STOP SMOKING: If you smoke, STOP. Smoking or tobacco use significantly increases your risk of heart disease because nicotine causes the arteries to narrow or constrict. It also causes fats to stick to the artery. Your chances of having a heart attack are greatly increased if you continue to smoke. For more information, call the education line for smoking cessation 9-261-PSBKCLZ EAT A LOW FAT/CHOLESTEROL/SODIUM DIET: This diet may help reduce your chances of having a heart attack. LIFTING: Avoid lifting anything more than 10 pounds for 5-7 days Prior to straining, laughing, sneezing and/or coughing, apply manual pressure directly over insertion site. ACTIVITY: You may walk or climb stairs as tolerated You can resume sexual activity as tolerated In general, you are encouraged to engage in a minimum of 30 minutes or more of moderate intensity physical activity, such as brisk walking, daily or at least 3-4 times weekly BATHING Do not submerge the site into water (bath tub, hot tub, swimming pool) for 1 week. This can be a source for infection into the blood stream. You may shower after 24 hours SITE CARE: After 24 hours, you may remove the dressing and leave the site open to air. Keep the site clean and dry. Clean gently and pat dry. You can expect bruising and tenderness that gradually resolve within a week or two. Return to work as instructed per your physician Resume driving as instructed per physician Keep all scheduled follow up appointments Resume medications as instructed IMPORTANT: If prescribed a Platelet Aggregation Inhibitor such as, Plavix, Brilinta or Effient: Duration of therapy is minimum one year These medications are often used in combination with Aspirin in prevention of future heart attacks Never discontinue unless consult with your Heavy Duty Mechanic STROKE (CVA) Risk factors for a stroke are: Age, cigarette smoking, diabetes, excessive alcohol consumption, family history, high blood pressure, overweight, physical inactivity, prior stroke, heart attack, diagnosis of carotid artery stenosis or other artery disease. Warning signs: Sudden numbness or weakness of the face, arm or leg; especially on one side of the body, sudden confusion, trouble speaking or understanding, sudden trouble seeing in one or both eyes, sudden trouble walking, dizziness, loss of balance or coordination, sudden severe headache with no cause. Call 911 or go to the Emergency Room. CONGESTIVE HEART FAILURE: If you have been diagnosed with Congestive Heart Failure (CHF) and your symptoms return, make an appointment with your physician Weigh yourself daily. Notify your physician if you have a weight gain of two or more pounds in one day or five or more pounds in one week. If you experience any difficulty breathing, please call 911 BLEEDING: Although the risk of bleeding is minimal, it can happen. If you have any bleeding from the site, apply firm pressure above the puncture site for 10-15 minutes. If the bleeding does not stop, continue manual pressure and call 911 CARDIAC REHABILITATION: If you have had a heart attack or cardiac stents placed, please ask your desk manager if Cardiac Rehabilitation is right for you. Cardiac Rehabilitation is recommended, beneficial to your health and can improve the following: strengthen your heart, improve ejection fraction, weight reduction, decrease cholesterol levels, lower blood pressure, lower blood sugar, improve stamina and enhance self-image. If you have any questions please call [facility] at [phone]. Contact your physician if: You develop a fever greater than 101 degrees Fahrenheit Your site becomes reddened or has any drainage You have an increase in pain or burning at the site or if a large knot forms at the site. If you experience chest pain, shortness of breath, dizziness, or extreme tiredness, stop the activity and rest. Please notify your physicians office if you experience any of these symptoms and they are not relieved by rest please call 911! - Diet and Activity Activity: increase activity as tolerated, resume usual activities as tolerated Diet: low fat, low cholesterol, low salt diet
[2018-10-01 10:59] LABS: Hematocrit 31.6 % (35.3-44.9); Hemoglobin 10.7 g/dL (11.5-15.4)
[2018-10-01 11:28] VITALS: BP 119/60
--- NOTE | 2018-10-02 15:10 | Electrocardiograph Report ---
[place] [email or web address] [facility] Test Date: 2018-09-28 Pat Name: Yanni Joseph Department: TRAUMA1 Room: 2N04 Gender: F Engrosser: : 1945 Requested By: Litzy Arias Order Number: [id number] Reading MD: Kolby Lucas Measurements Intervals [place] Rate: 80 P: 69 IN: 222 QRS: 77 QRSD: 104 T: 133 QT: 375 QTc: 433 Interpretive Statements Sinus rhythm Ventricular premature complex Prolonged IN interval Inferior infarct, acute (RCA) Minimal ST elevation, anterior leads Probable RV involvement, suggest recording right precordial leads Electronically Signed On 10-02-2018 15:08:40 EDT by Kolby Lucas
--- NOTE | 2018-10-03 07:32 | Electrocardiograph Report ---
[place] [employer] [facility] Test Date: 2018-09-28 Pat Name: Yanni Joseph Department: TRAUMA1 Room: 2N04 Gender: F Rental Coordinator: : 1945 Requested By: Donavon Kevin Order Number: [id number] Reading MD: Jesus Celis Measurements Intervals [place] Rate: 77 P: 64 MD: 219 QRS: 79 QRSD: 100 T: 130 QT: 382 QTc: 433 Interpretive Statements Sinus rhythm Borderline prolonged MD interval Probable left atrial enlargement Inferior infarct, acute (RCA) Minimal ST elevation, anterior leads Lateral leads are also involved Probable RV involvement, suggest recording right precordial leads Electronically Signed On 10-03-2018 6:27:49 EDT by Jesus Celis
== END 2018-10-01 13:25 | disposition home or self-care (01) | DRG 281 ==
LOC: EMEROOARM 23:15 → ICNU 23:45 → 2NNU 09-29 17:33
PROVIDERS: ADMIT Internal Medicine Cardiovascular Disease; ATTEND Internal Medicine Cardiovascular Disease